=== PATIENT | female | born 1995 | race Two or more races ===

== ENCOUNTER 2018-11-15 12:41 | Emergency (ER) | payer SELFPAY ==
[2016-04-01 13:48] VITALS: BP 141/98
[~2018-11-15] VITALS: Ht 162.6 cm; Wt 115.7 kg
[~2018-11-15 12:41] MED LIST: NAPR-514 PO
[2018-11-15] MEDS ORDERED: CIPR10DR EACH EAR (13:20)
--- NOTE | 2018-11-15 13:21 | PHYS DOC ---
Past Medical History Past Medical History: No Pertinent History Past Surgical History: Additional Past Surgical Histo: R WRIST Alcohol Use: None Drug Use: None Adult General Chief Complaint Chief Complaint: EARACHE/EAR PAIN [facility] HPI Patient is a 23 year old [female who presents with [left ear pain for 3 days. States she has no idea what caused it, denies putting any objects in ear, states she has never had this problem in the past. Denies fever. Does state she has been taking some Tylenol which has helped her discomfort some. Denies cough, denies sore throat, denies exposures to other ill contacts.] Review of Systems Review of Systems Constitutional: Denies fever or chills [] Eyes: Denies change in visual acuity, redness, or eye pain [] HENT: Denies nasal congestion or sore throat Complains of pain to left ear [] Respiratory: Denies cough or shortness of breath [] Cardiovascular: No additional information not addressed in HPI [] GI: Denies abdominal pain, nausea, vomiting, bloody stools or diarrhea [] : Denies dysuria or hematuria [] All other systems were reviewed and found to be within normal limits, except as documented in this note. Allergies Allergies Allergies Coded Allergies Type Severity Reaction Last Updated Verified No Known Drug Allergies 02/25/14 No Physical Exam Physical Exam Constitutional: Well developed, well nourished, no acute distress, non-toxic appearance. [] HENT: Normocephalic, atraumatic, oropharynx moist, no oral exudates, nose normal. Left ear with tragal tenderness, discomfort on palpation or movement of pinna. Canal noted inflammed, bilaterally. No foreign bodies noted, no purulence noted. [] Eyes: PERRLA, EOMI, conjunctiva normal, no discharge. [] Neck: Normal range of motion, no tenderness, supple, no stridor. [] Cardiovascular:Heart rate regular rhythm, no murmur [] Lungs & Thorax: Bilateral breath sounds clear to auscultation [] Abdomen: Bowel sounds normal, soft, no tenderness, no masses, no pulsatile masses. [] Skin: Warm, dry, no erythema, no rash. [] Back: No tenderness, no CVA tenderness. [] Extremities: No tenderness, no cyanosis, no clubbing, ROM intact, no edema. [] Neurologic: Alert and oriented X 3, normal motor function, normal sensory function, no focal deficits noted. [] Psychologic: Affect normal, judgement normal, mood normal. [] Current Patient Data Vital Signs Vital Signs Date Time Temp Pulse Resp B/P (MAP) Pulse Ox O2 Delivery O2 Flow Rate FiO2 11/15/18 12:45 98.1 84 22 143/84 (103) 97 Room Air 98.1 EKG EKG [] Radiology/Procedures Radiology/Procedures [] Course & Med Decision Making Course & Med Decision Making Pertinent Labs and Imaging studies reviewed. (See chart for details) [Discussed findings consistent with Otitis Externa, with tragal, pinna tenderness and swollen canal. Discussed use of ear drops and use of tylenol for discomfort. ] Dragon Disclaimer Dragon Disclaimer This electronic medical record was generated, in whole or in part, using a voice recognition dictation system. Departure Departure Impression: Primary Impression: Otitis externa Disposition: HOME, SELF-CARE Condition: GOOD Referrals: NO PCP (PCP) Patient Instructions: Otitis Externa, [id number] Additional Instructions: You should continue to take Tylenol for pain. You can take 500 or 1000 mg every 6 hours for the pain Do not put anything in your ear, other than the ear drops Use the ear drops for 7 days, even if you feel better after 2 or 3 days. Use drops in both of your ears Scripts Ciprofloxacin/Hydrocortisone (CIPRO HC OTIC SUSPENSION) 10 Ml Drops.susp 3 DROP EACH EAR BID, #10 ML Prov: JENNIFER LICONA APRN 11/15/18 Problem Qualifiers Primary Impression: Otitis externa Otitis externa type: diffuse Chronicity: acute Laterality: left Qualified Codes: H60.312 - Diffuse otitis externa, left ear JENNIFER LICONA APRN Nov 15, 2018 13:20
== END 2018-11-15 13:35 | disposition home or self-care (01) ==
LOC: ER 12:41
DX: H60.312 Diffuse otitis externa, left ear (principal); Z98.890 Other specified postprocedural states
CPT/HCPCS: 99283